=== PATIENT | female | born 1955 | race African-American/Black ===

== ENCOUNTER 2019-06-05 19:11 | Inpatient (IN) ==
[2019-06-05] MEDS ORDERED: NS 1,000 ML IV ONE (19:38)
--- NOTE | 2019-06-05 19:41 | Diag Imaging Result Doc PS360 ---
CT HEAD W/O CONTRAST - 06/05/2019 INDICATION: left side weakness COMPARISON: None FINDINGS: The ventricles and sulci are normal in size and contour. There is moderately advanced scattered cerebral white matter hypodensity compatible with chronic microvascular ischemia. There is extremely dense vascular calcification of the carotid siphons. There are old lacunae in the right basal ganglia. The skull is intact. The sinuses, mastoids, and middle ears are clear. IMPRESSION: Extensive chronic ischemic changes. No acute process. This exam was performed using automated exposure control, adjustment of mA or kV according to patient size, and/or use of iterative reconstruction technique Electronically signed by Carlos Alonzo 06/05/2019 7:39 PM
[2019-06-05 20:25] LABS: BASO# 0.02 X1000 (0.0-0.2); BASO% 0.3 % (0.0-0.8); EOS% 1.4 % (0.0-10.0); HEMOGLOBIN 12.3 g/dL (12.0-16.0); LYMPH# 2.52 X1000 (1.2-3.4); LYMPH% 34.1 % (20.5-51.1); MCH 24.2 PG (27-31); MCHC 32.4 g/dL (33-37); MCV 74.8 FL (81-99); MONO# 0.55 X1000 (0.11-0.59); MONO% 7.4 % (1.7-9.3); MPV 11.1 FL (7.4-10.4); NEUT# 4.21 X1000 (1.4-6.5); NEUT% 56.8 % (42.2-75.2); PLT 218 X1000 (130-400); RBC 5.08 XMIL (4.2-5.4); RDW 15.5 % (11.5-14.5)
[2019-06-05 20:40] LABS: AGAP 10; ALB/GLOB RATIO 1.9; ALBUMIN 4.5 g/dL (3.5-5.0); ALKALINE PHOSPHATASE 88 U/L (32-104); BUN 10 mg/dL (8-22); CALCIUM 9.7 mg/dL (8.8-10.2); CHLORIDE 101 mmol/L (98-107); COSMO 280; CREATININE 0.6 mg/dL (0.5-0.9); ESTIMATED GFR > 60; GLUCOSE 100 mg/dL (70-104); GOT 22 U/L (10-30); GPT 15 U/L (10-36); SODIUM 141 mmol/L (136-145); TCO2 30 mmol/L (25-35); TOTAL BILIRUBIN 0.31 mg/dL (0.20-1.00); TOTAL PROTEIN 6.9 g/dL (6.3-8.3)
[2019-06-05 20:45] LABS: CK PROFILE 222 U/L (24-173)
[2019-06-05 20:59] LABS: CK-MB 2.25 ng/mL (0.0-5.0)
--- NOTE | 2019-06-05 21:44 | PROVIDER DOCUMENTATION ---
This chart was entered by Domenica New Scribe, acting as scribe for Bony Ma DO. HPI-Neurological Disorder - General Stated Complaint: POSSIBLE STROKE Time Seen by Provider: 06/05/19 19:13 Source: patient, EMS Allergies/Adverse Reactions: Patient Allergies Allergy/AdvReac Type Severity Reaction Status Date / Time No Known Allergies Allergy Verified 05/19/18 06:41 Home Medications: Home Medication List Medication Instructions Recorded Confirmed Last Taken Type Amlodipine Besylate 10 mg PO DAILY 07/10/17 06/05/19 06/05/19 History Carvedilol 25 mg PO BID 07/10/17 06/05/19 06/05/19 History Clonidine HCl 0.2 mg PO TID 07/10/17 06/05/19 06/05/19 History Hydralazine [Apresoline] 50 mg PO TID 05/17/18 06/05/19 06/05/19 History Simvastatin 20 mg PO HS 05/17/18 06/05/19 1 Day Ago History ~06/04/19 Benazepril HCl 40 mg PO DAILY 06/05/19 06/05/19 06/05/19 History Clonazepam 0.5 mg PO DAILY PRN PRN 06/05/19 06/05/19 06/05/19 History Montelukast [Singulair] 10 mg PO QHS 06/05/19 06/05/19 1 Day Ago History ~06/04/19 - History of Present Illness-Neuro Nature of Presenting Problem: 63 yobf arrives to ed via first response w/cc poss CVA/TIA. ems sts pt has weakness and paresthesia of LUE and LLE starting this am which is not her usual baseline. pt has had some falls recently. unsure of loc or head injury. pt has hx of HTN and hyperlipdemia, no DM. Severity: reports: mild Onset/Duration: reports: this morning Timing: reports: still present Context: reports: falling. denies: head injury, impaired speech, facial droop Character of Altered Mental Status: reports: N/A Any recent trauma/injury?: reports: none Character of Deficits: reports: new weakness (LLE and LUE), falling (stumbling) New weakness or altered sensation location:: reports: LUE, LLE. denies: right facial, left facial Cognitive Baseline: alert, oriented x3 Gait Baseline: walks without assistance Associated Symptoms: reports: denies symptoms Similar Symptoms Previously?: No Review of Systems - Adult - REVIEW OF SYSTEMS - ADULT Constitutional: reports: no symptoms reported. denies: chills, fever, fatique Eyes: reports: no symptoms reported Ears, Nose, Mouth & Throat: reports: no symptoms reported Cardiovascular: reports: no symptoms reported Respiratory: reports: no symptoms reported Gastrointestinal: reports: no symptoms reported Genitourinary: reports: no symptoms reported Musculoskeletal: reports: no symptoms reported Integumentary: reports: no symptoms reported Neurological: reports: see HPI, loss of balance, paresthesia (LLE AND LUE). denies: dizziness/vertigo, headache/migraines, syncope Psychiatric: reports: no symptoms reported Endocrine: reports: no symptoms reported Hematologic/Lymphatic: reports: no symptoms reported Allergic/Immunologic: reports: no symptoms reported All Other Systems: Reviewed and Negative Past History - Adult - PAST MEDICAL HISTORY-ADULT Review of Records: reports: Nursing Assessment Review, Medications Reviewed, S ocial history reviewed & non-contributory. Major Childhood Illnesses: reports: denies history Cardiovascular: reports: HTN, hyperlipidemia Respiratory: reports: denies history Gastrointestinal: reports: denies history Obstetrical/Gynecological: reports: denies history Genitourinary: reports: denies history Musculoskeletal: reports: denies history Neurological: reports: denies history Endocrine/Immune: reports: denies history. denies: Diabetes Other Conditions: reports: denies history - PRIOR SURGERIES/PROCEDURES Surgical/Procedure History: reports: cholecystectomy, hysterectomy, orthopedic (extremity) - IMMUNIZATION STATUS Childhood Immunizations: See Nurse Assessment Flu Vaccine: See Nurse Assessment - FAMILY HISTORY Family History: reviewed, not pertinent - SOCIAL HISTORY Smoking: cigarettes, chew, less than 1 pack/day Provider spent 3-5 mins advising pt. on dangers of tobacco.: Discussed manners to quit use, and f/u contacts for add'l counseling. Substance Use: none/never Physical Exam- Neurological - Physical Exam-Neuro Initial Vital Signs Reviewed: Yes General Appearance: alert, no apparent distress. negative: lethargic, slow to respond, obtunded Eye Exam: bilateral eye: normal inspection, PERRL, EOMI HENMT: normocephalic/atraumatic, moist mucous membranes Head Injury: no evidence of injury Neck: non-tender, full range of motion, supple, normal inspection Respiratory: chest non-tender, lungs clear, normal breath sounds Cardiovascular: normal peripheral pulses, regular rate, rhythm Abdominal Exam: normal bowel sounds, non tender, soft Extremity: normal range of motion, non-tender, normal inspection hydrator Exam: normal hearing, normal speech, PERRL. 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 negative: no motor/sensory deficits, aphasia, EOM palsy, facial droop Integumentary: normal color, normal turgor, warm/dry Psych/Mental Status: normal mood/affect, normal thought content, normal thought process, oriented x 3 - Glascow Coma Scale Best Eye Response: (4) open spontaneously Best Verbal Response: (5) oriented Best Motor Response: (6) obeys commands Total Glascow Score: 15 Progress - PLAN OF CARE/RESULTS Progress/Plan/Lab Results: Vital Signs - 8 hr 06/05/19 19:49 06/05/19 20:48 Temperature 98.4 F Pulse Rate 70 68 Respiratory Rate 13 18 Blood Pressure 155/102 168/95 O2 Sat by Pulse Oximetry 98 98 Laboratory Results - last 24 hr 06/05/19 06/05/19 06/05/19 20:01 20:01 20:01 WBC 7.40 RBC 5.08 Hgb 12.3 Hct 38.0 MCV 74.8 L MCH 24.2 L MCHC 32.4 L RDW Std Deviation 15.5 H Plt Count 218 MPV 11.1 H Neut % (Auto) 56.8 Lymph % (Auto) 34.1 [place] % (Auto) 7.4 Eos % (Auto) 1.4 Baso % (Auto) 0.3 Neut # (Auto) 4.21 Lymph # (Auto) 2.52 [place] # (Auto) 0.55 Eos # (Auto) 0.10 Baso # (Auto) 0.02 Sodium 141 Potassium 4.0 Chloride 101 Carbon Dioxide 30 Anion Gap 10 BUN 10 Creatinine 0.6 Estimated GFR/1.73 m2 > 60 BUN/Creatinine Ratio 17 Glucose 100 Calculated Osmolality 280 Calcium 9.7 Total Bilirubin 0.31 AST 22 ALT 15 Alkaline Phosphatase 88 Creatine Kinase 222 H Creatine Kinase Index 1.0 CK-MB (CK-2) 2.25 Troponin T High Sens 6 Total Protein 6.9 Albumin 4.5 Globulin 2.4 Albumin/Globulin Ratio 1.9 Orders Category Date Time Status CT HEAD W/O CONTRAST [CT] Stat Exams 06/05/19 19:14 Completed CBC WITH ELECTRONIC DIFF [HEME] Stat Lab 06/05/19 20:01 Completed CK PROFILE [SP CHEM] Stat Lab 06/05/19 20:01 Completed COMPREHENSIVE METABOLIC PANEL [CHEM] Stat Lab 06/05/19 20:01 Completed TROPONIN T HIGH SENSITIVITY Stat Lab 06/05/19 20:01 Completed 0.9% Sodium Chloride Inj [Ns] 1,000 ml Med 06/05/19 19:38 Discontinued IV 999 mls/hr EKG [EKG] Stat Ther 06/05/19 19:21 Ordered Result Diagrams: 06/05/19 20:01 06/05/19 20:01 - REASSESSMENT Reassessment #1 Time Reassessed: 21:18 Status: improving (slight improvement in left arm. Can reach up and grasp) - EKG 1 Time of EKG reading by physician:: 21:35 EKG Read and Signed by:: Bony Ma EKG Interpretation (*Must complete 3 of following elements*): Normal (borderline) Rate: 80 Rhythm: NSR [place]: normal QRS: normal CO Interval: normal ST Wave: normal Comments: poss LAE - CT/MRI 1 CT Study: Head Impression: See EMR Report ( CT HEAD W/O CONTRAST - 06/05/2019 INDICATION: left side weakness COMPARISON: None FINDINGS: The ventricles and sulci are normal in size and contour. There is moderately advanced scattered cerebral white matter hypodensity compatible with chronic microvascular ischemia. There is extremely dense vascular calcification of the carotid siphons. There are old lacunae in the right basal ganglia. The skull is intact. The sinuses, mastoids, and middle ears are clear. IMPRESSION: Extensive chronic ischemic changes. No acute process. This exam was performed using automated exposure control, adjustment of mA or kV according to patient size, and/or use of iterative reconstruction technique Electronically signed by Carlos Alonzo 06/05/2019 7:39 PM) Comparison with other Films: no prior study - CONSULTS/PCP/HOSPITALIST Notification #1 *Consult/PCP/Hospitalist*: Dr. Randolph Time Discussed: 21:41 Consult Disposition: Will see in ED, Admit Departure - Departure Date of Disposition Decision: 06/05/19 Time of Disposition Decision: 21:43 DIAGNOSIS: CVA (cerebral vascular accident) Qualifiers: CVA mechanism: occlusion Precerebral and cerebral artery: unspecified cerebral artery Qualified Code(s): I63.50 - Cerebral infarction due to unspecified occlusion or stenosis of unspecified cerebral artery Disposition: ADMITTED INPATIENT 09 Certified Medical Emergency: Emergent Condition: Fair Referrals and Follow-Ups: None,PCP [Primary Care Provider] - - Critical Care Note This patient required my direct & personal management of CC.: No Attestation - Physician/ TONJA Attestation Patient care was provided by Advanced Practice Provider:: No The physician spent face to face time with patient:: Yes Advanced Practice Provider documentation review:: Supervising physician onsite and consulted in the evaluation and care of this patient. The physician did have a face to face encounter with the patient. - NIH Stroke Scale Level of Consciousness: 0-Alert LOC Questions (ask month and age): 0-Answers Both Correctly LOC Commands (ask to open & close eyes;make a fist, let go): 0-Obeys Both Correctly Best Gaze (horizontal eye movement): 0-Normal Visual (use finger movement, counting or visual threat): 0-No Visual Loss Facial Palsy (show teeth or raise eyebrows & close eyes tght: 0-Symmetrical Movement Motor Function-left arm: 1-Drift Motor Function-right arm: 0-Normal Motor Function-left le-Drift Motor Function-right le-Normal Limb Ataxia(ipohhc-bans-fjwreb, or heel to waters): 1-Present in one limb Sensory(pin prick to face,arms,trunk,legs-compare side/side): 0-No Ataxia Best Language(name item/read sentence.Ex-Down to Earth): 0-No Aphasia Dysarthria(Pt read words or say words Ex.Mama,Tip-Top,Thanks: 0-Normal Articulation Extinction and Inattention: 0-Normal NIH Total Score: 3 This chart was documented by the indicated scribe, (NewDomenica Scribe) and accurately reflects the services I performed and decisions made by me, Bony Ma DO, as attested by the provider's signature.
--- NOTE | 2019-06-05 21:55 | EKG Report ---
Test Performed on : 06/05/2019 9:34:18 PM Test Reason : stroke like symptoms Blood Pressure : / mmHG Vent. Rate : 080 BPM Atrial Rate : 080 BPM P-R Int : 170 ms QRS Dur : 072 ms QT Int : 396 ms P-R-T Axes : 119 187 181 degrees QTc Int : 456 ms Suspect arm lead reversal, interpretation assumes no reversal Normal sinus rhythm. Right superior axis deviation T wave abnormality, consider inferior ischemia Abnormal ECG No previous ECGs available Unconfirmed Result
[2019-06-05] MEDS ORDERED: ASPIRIN PO ONE (22:36)
--- NOTE | 2019-06-05 23:51 | HISTORY AND PHYSICAL ---
PRIMARY CARE PROVIDER: None listed. REASON FOR ADMISSION: One-day history of left-sided weakness and numbness. HISTORY OF PRESENT ILLNESS: Mr. Carlos Valentin is a pleasant 61-year-old black female with past medical history of hypertension, asthma, hyperlipidemia. Comes in today complaining of waking up with left-sided numbness and subsequent weakness of the entire left side. She states that this started at 8:30 a.m. today. She said she was able to make a fist or barely move her fingers of her left hand. She denies any antecedent palpitations, lightheadedness, shortness of breath. She denies has any difficulty swallowing, visual symptoms, headache. Denies any GI or complaints, polyuria, polydipsia. Denies any recent change in her home medications. She does admit that she snores a lot. She has been told that she snores heavily a lot. REVIEW OF SYSTEMS: Twelve system review was done. Positive findings per HPI except patient now states that her strength in her hand has gotten a little bit better and the numbness is beginning to recede at this time. ALLERGIES: No known allergies. HOME MEDICATIONS: The patient takes clonidine 0.2 mg 3 times a day, clonazepam 0.5 mg daily, Coreg 25 mg b.i.d., benazepril 40 mg daily, Apresoline 50 mg t.i.d., amlodipine 10 mg daily, Singulair 10 mg at bedtime, simvastatin 20 mg at bedtime. SOCIAL HISTORY: , lives with spouse and children. Does not smoke, drink or use illicit drugs. SURGICAL HISTORY: Nasal surgery. FAMILY HISTORY: Notable for diabetes and heart disease. LABORATORY WORK: EKG does shows normal sinus rhythm with rightward axis. White count 7000, hemoglobin and hematocrit 12 and 38, platelets 218,000. Chemistry, BUN 10, creatinine 0.6. CK 222, troponin is 6. CT head showed extensive chronic ischemic changes, no acute process present. There is an old lacuna in the right basal ganglia. PHYSICAL EXAMINATION: VITAL SIGNS: Blood pressure 164/101, pulse rate is 70, respiratory rate is 17, temperature is 98.4 degrees. She is 95% on room air. GENERAL: She is a pleasant black female who is alert and oriented to person and time with normal mood and affect. HEENT: Head is normocephalic, atraumatic. Eyes, MARGIE. EOMI. She is anicteric, not pale. ENT and oropharynx exam is grossly normal. No central cyanosis noted. NEUROLOGIC: Cranial nerves 2 to 12 are grossly intact. Extremity exam, the patient has left pronator drift and power about 3-4/5 on the left upper extremity, 4/5 on the left lower extremity. NECK: Supple. No JVD or carotid bruit. No thyromegaly. CHEST: Clear when auscultated clear and good air entry both lung alfonso. CARDIOVASCULAR: First and second heart sounds heard. 2-3/6 ejection systolic murmur heard over the aortic area, not radiating. Rhythm is regular. ABDOMEN: Full, soft. No tenderness. No organomegaly. Bowel sounds are normal. RECTAL: Exam is deferred. EXTREMITIES: Patient has good distal pulse volumes, regular, symmetrical. No edema, clubbing or cyanosis. SKIN: Intact. No breakdown, lesion, erythema. MUSCULOSKELETAL: Exam is grossly normal. ASSESSMENT: 1. Right cerebrovascular with left-sided weakness. 2. Hypertension, uncontrolled. 3. Probable sleep apnea. 4. Hyperlipidemia. 5. Microcytosis, probably thalassemia variant. PLAN: The patient will undergo radioimaging to include MRI of the brain, MRA of the brain, echo, carotid Doppler studies. Consult sleep specialist to evaluate patient for outpatient sleep study due to the fact she is on multiple medications which could indicate this and she agrees. She states that she does snore a lot. We will allow for permissive hypertension to increase intracerebral blood flow. IV fluids for the next 12 hours then reassess. We will consult Neurology to see patient. We will also consult PT, OT. Statins and aspirin will also be initiated. We will also evaluate patient for diabetes since she has a family history of this and this will also need to be addressed. cc: Rajat Randolph MD [facility]
[2019-06-06] MEDS ORDERED: KLONOPIN PO PRN (00:33)
[2019-06-06] MEDS ORDERED: LIPITOR PO SCH (00:33)
[2019-06-06] MEDS ORDERED: LOVENOX SUBQ SCH (00:33)
[2019-06-06] MEDS: NS 1,000 ML IV SCH ×2 (00:52→07:29)
[2019-06-06 05:59] LABS: BASO# 0.05 X1000 (0.0-0.2); BASO% 0.6 % (0.0-0.8); EOS# 0.13 X1000 (0.0-0.7); EOS% 1.6 % (0.0-10.0); HEMATOCRIT 38.4 % (37.0-47.0); IMM GRAN# 0.02 X1000 (0.0-0.04); IMM GRAN% 0.2 % (0.0-0.5); LYMPH# 3.02 X1000 (1.2-3.4); LYMPH% 36.2 % (20.5-51.1); MCH 23.6 PG (27-31); MCHC 31.3 g/dL (33-37); MCV 75.6 FL (81-99); MONO# 0.53 X1000 (0.11-0.59); MONO% 6.3 % (1.7-9.3); MPV 11.2 FL (7.4-10.4); NEUT% 55.1 % (42.2-75.2); PLT 227 X1000 (130-400); RBC 5.08 XMIL (4.2-5.4); RDW 15.2 % (11.5-14.5); WBC 8.35 X1000 (4.8-10.8)
[2019-06-06 06:16] LABS: HEMOGLOBIN A1C 5.7 % (4.8-6.0)
[2019-06-06 06:22] LABS: AGAP 9; BUN 7 mg/dL (8-22); CALCIUM 9.4 mg/dL (8.8-10.2); CHLORIDE 103 mmol/L (98-107); COSMO 275; CREATININE 0.6 mg/dL (0.5-0.9); ESTIMATED GFR > 60; GLUCOSE 92 mg/dL (70-104); SODIUM 139 mmol/L (136-145); TCO2 27 mmol/L (25-35)
[2019-06-06] MEDS ORDERED: NORVASC PO SCH (09:00)
[2019-06-06] MEDS ORDERED: COREG PO SCH (09:00)
[2019-06-06] MEDS ORDERED: ASPIRIN PO SCH (09:00)
[2019-06-06] MEDS ORDERED: LOTENSIN PO SCH (09:00)
--- NOTE | 2019-06-06 13:54 | ECHO REPORT ---
ORDER DATE: 06/06/2019 INTERPRETING PHYSICIAN: Dr. Saw Gee. ECHOCARDIOGRAPHIC MEASUREMENTS: 1. Interventricular septum 1.6. 2. Left ventricular posterior wall 1.6 cm. 3. Left ventricular diastolic diameter 3.2 cm. 4. Left atrium 3.1 cm. 5. Aorta 3.1 cm. SUMMARY OF THE 2-DIMENSIONAL IMAGIN. Aortic valve leaflets were trileaflet. 2. Pulmonic valve was normal. 3. Mitral valve was normal. 4. Tricuspid valve was normal. 5. There is left atrial enlargement. 6. Pulmonic valve was normal. 7. There is mild mitral regurgitation. 8. Mild tricuspid regurgitation. Peak velocity across the tricuspid valve was 2 m/sec. 9. Pulmonary artery systolic pressure of 26 mmHg. 10. Peak velocity across the aortic valve less than 2 m/sec. There is no aortic stenosis. There is mild aortic regurgitation. 11. There is mild mitral regurgitation. 12. Normal left ventricular cavity size. Moderate concentric left ventricular hypertrophy. Estimated ejection fraction of 65% to 70%. 13. Grade 2 diastolic dysfunction noted. 14. Left atrium was enlarged. 15. There is no pericardial effusion or obvious intracardiac mass or thrombus seen. cc: MD Rajat Masterson MD
--- NOTE | 2019-06-06 13:56 | Diag Imaging Result Doc PS360 ---
EXAM: MRI BRAIN W/O CONTRAST HISTORY: possible CVA TECHNIQUE: MRI brain without contrast. Axial, sagittal, and coronal images obtained in multiple sequences. COMPARISON: Recent head CT. FINDINGS: There is a 9 x 17 mm area of increased signal in the right parietal lobe on the diffusion images consistent with a recent infarct. There are also prominent periventricular areas of increased signal on the inversion and FLAIR weighted images. No hydrocephalus. No mass or midline shift. No epidural or subdural fluid collection. Normal orbits. No sinus opacification. IMPRESSION: Small recent right parietal infarct with chronic microvascular ischemic changes Electronically signed by Dc Balbuena 06/06/2019 1:54 PM
[2019-06-06 15:55] VITALS: BP 162/105
--- NOTE | 2019-06-06 16:33 | NEUROLOGY CONSULTATION ---
DATE: 06/06/2019 REASON FOR CONSULT: Stroke. HISTORY OF PRESENT ILLNESS: This is a 63-year-old right-handed, black female with history of hypertension, hyperlipidemia, who presented yesterday with symptoms concerning for stroke or TIA. History is from the patient. She reports waking up yesterday around 8 a.m. and felt some numbness initially she felt in both of her feet. She sat on the side of the bed and then slid onto the floor by accident. She realized then that the left side of her body was numb and had a pinching sort of sensation. She did not feel it was particularly weak at that time. She got up, went into the kitchen, sat down in a chair and gradually over the next few hours she began to feel that her symptoms were worsening with more numbness and she began to feel as though she could not use her left hand and arm as well as she could in the morning. Her leg seemed a little bit weak as well. She finally decided to come to the emergency department for evaluation. She denies speech changes, difficulty swallowing, headache, other focal weakness or neurologic symptoms. Her symptoms now have shown some improvement but she is not at baseline. She has never had anything like this before and she denies history of known prior stroke. Head CT did not show acute findings. MRI this morning did reveal a small recent right parietal infarct. She has no history of seizure or known prior stroke. She denies seizure or other major neurologic event. PAST MEDICAL HISTORY: Includes hypertension, hyperlipidemia, asthma. FAMILY HISTORY: Positive for diabetes and heart disease. No stroke. Her brother had seizures related to alcoholism. SOCIAL HISTORY: She is . No tobacco, alcohol or illicits. ALLERGIES: No known drug allergies. MEDICATIONS: At home include clonidine, clonazepam 0.5 mg daily. Coreg, benazepril, Apresoline, amlodipine, Singulair and simvastatin. She does not take an anti-platelet agent daily. REVIEW OF SYSTEMS: Balance of 12 conducted and otherwise negative except that detailed in the HPI. PHYSICAL EXAMINATION: Vital Signs: Afebrile, blood pressure 155/102 on admission. Current 170/107, pulse 60s to 70s. Respirations 18, 98% on room air. Neurologic: Ms. Valentin is supine in bed with head of bed elevated. She is awake, alert and oriented. Speech is fluent. No significant dysarthria. No language disturbance on brief bedside testing. I watch her as she gets up and sits on the side of the bed with her legs hanging over the edge. She has obvious weakness to the left upper extremity and holds that arm near her torso. She follows simple and complex commands. Left, right digit distinction preserved. Pupils equal, round, and reactive to bright light. Gaze is conjugate. Ocular movements are full. Visual alfonso intact to direct confrontational testing. Face symmetric with equal activation. Facial sensation reported intact. She can hear. Tongue is midline. Palate elevates symmetrically. Shoulder shrug is full. There is a pronator drift. She has good power on the right arm and leg. On the left, I can overcome the deltoid grading 4 to 4+ out of 5, biceps grading for 4 to 4+ out of 5. Triceps grading for 4/5. She has more considerable loss of strength involving the hand itself. She has considerably more weakness on the left hand and she often uses her right hand to help her with this. Left hip flexion is 4+ out of 5. Extension of the knee is 5/5. Dorsiflexion and plantar flexion 5/5. I did not elicit ankle jerks today. At the knees 1+. Wrist 1+. No clonus. Plantar response is extensor on the left; flexor on the right. She is able to stand and walk without assistance and does so pretty well although verbal report today from the nurse is that earlier in her admission she was quite wobbly on her feet and unable to use the left upper extremity. Much at all so she has had apparently significant improvement. She does report diminished sensation over the left arm and leg compared to the right. Tewcmr-xj-[id number] is more difficult using the left than the right I think due to weakness. She performs rapid alternating movements better with the right hand compared to the left. Also due to weakness. DIAGNOSTICS: MRI of the brain personally reviewed showing a small right parietal infarct. There is also chronic microvascular ischemic changes in the periventricular region bilaterally. Head CT did not show acute findings. Echocardiogram did not show evidence of mass or thrombus. Left atrium is enlarged. Estimated ejection fraction 65 to 70 percent. Normal white count, sodium, BUN, creatinine. A1c of 5.7, AST and ALT normal. Triglycerides 109. Cholesterol 203, LDL 128, HDL 69. ASSESSMENT AND PLAN: Acute right parietal ischemic stroke with left hemiparesis and hemisensory loss significantly, apparently with significant improvement. The most significant of her current findings involve the left hand. Agree with typical stroke workup as you are doing. Carotid Doppler's were just performed before I saw her and those are pending. I would watch her blood pressure, cautiously treat, allowing for a moderate amount of permissive hypertension over the next day or so. Agree with high potency statin therapy and low-dose aspirin therapy daily with food. She would benefit from occupational therapy. She should not be eating until she is cleared in terms of safety for p.o. intake. Neuro checks. Thank you for the consult. cc: Rhonda Zimmerman MD MTDD
--- NOTE | 2019-06-06 20:42 | Carotid Study ---
DATE: 06/06/2019 PROCEDURE: Bilateral duplex and color flow imaging of the carotid arteries performed using the [employer] Vivid E9 ultrasound system with a 9L-D transducer. REFERRING PHYSICIAN: Dr. Randolph. GERIATRIC PHYSICIAN: Oscar Barreto RVT. INDICATIONS: Stroke. FINDINGS: The velocities in cm/sec of both carotid systems were reviewed. There did not appear to be any elevated velocities throughout both carotid systems, suggesting no stenosis. There was forward flow in the right vertebral artery and the right ICA/CCA ratio was 1.59, corresponding to a percent stenosis of 0 to 39 percent. The left vertebral artery had forward flow and the left ICA/CCA ratio was 0.95, corresponding to a percent stenosis of 0 to 39 percent. INTERPRETATION: Despite the patient's stroke, there is only minimal atherosclerotic disease of the distal common and internal carotid arteries bilaterally, without evidence of a hemodynamically significant lesion in either carotid system. cc: MD Rajat Centeno MD
--- NOTE | 2019-06-11 11:23 | DISCHARGE SUMMARY ---
ADMISSION DATE: 06/06/2019 DISCHARGE DATE: 06/06/2019 DISCHARGE DIAGNOSES: 1. Acute stroke. 2. Left-sided hemiparesis. 3. Hypertension. 4. Asthma. 5. Hyperlipidemia. HOSPITAL COURSE: The patient presented with some left-sided weakness and numbness. Concern was for stroke. She was started on aspirin, permissive hypertension was allowed. An MRI did confirm a small recent right parietal infarction as well as chronic microvascular changes. The patient was not on aspirin at home so she was maintained on a baby aspirin. Her statin was maximized with atorvastatin 80. The rest of her home medicines were continued once she was past the permissive hypertension point. The patient's left hemiparesis improved, although did not entirely resolved. It is improved especially in the upper extremity. She was evaluated by Physical Therapy and did better than expected. She was able ambulate with little to no assistance with a walker. After discussion, patient elected to discharge home rather than go to rehab. DISCHARGE VITAL SIGNS: Temperature 98.7 degrees, pulse 86, respirations 17, blood pressure 162/105, O2 saturation 98% on room air. DISCHARGE MEDICATIONS: Singulair 10 mg p.o. at bedtime, Norvasc 10 mg p.o. daily, hydralazine 50 mg p.o. t.i.d., benazepril 40 mg p.o. daily, Coreg 25 mg p.o. b.i.d., clonazepam as previously prescribed, clonidine 0.2 mg p.o. t.i.d., atorvastatin 80 mg p.o. at bedtime, aspirin 81 mg p.o. daily. FOLLOWUP AND PLAN: Patient discharging home to follow up with PCP. Patient started on aspirin and high-dose atorvastatin for acute stroke. TIME SPENT: Greater than 30 minutes spent arranging discharge and counseling patient.
== END 2019-06-06 17:29 | disposition home health service (06) | DRG 65 ==
LOC: ED 19:11 → SUATTDRO 06-06 00:24 → 2N 06-06 00:24
PROVIDERS: ATTEND Internal Medicine